=== PATIENT | female | born 1940 | race Caucasian/White ===

== ENCOUNTER → 2017-04-17 | Outpatient (CLI) | payer MEDICARE, MEDICAID ==
[~2017-04-17] MED LIST: Bisacodyl PO; CLON-457 PO; Docusate Sodium PO; FOLI-43 PO; FOLI0.8T23 PO; FUROSEMIDE PO; GABAPENTIN PO; IBUP-2029 PO; LANTUS SUBCUT; METO50TA5 PO; METOCLOPRAMIDE PO; MULT-983 PO; NITR0.4T SL; OMEP20CA10 PO; ONDA4TAB21 PO; Polyethylene Glycol 3350 PO; SAXA2.5T PO; TRAM150C40 PO
== END | disposition home or self-care (01) ==
LOC: RAD 11:50
PROVIDERS: ATTEND Internal Medicine Nephrology
DX: M47.896 Other spondylosis, lumbar region (principal); M25.552 Pain in left hip; W19.XXXD Unspecified fall, subsequent encounter
CPT/HCPCS: 72100; 73502